=== PATIENT | female | born 1980 | race Caucasian/White ===

== ENCOUNTER 2024-06-20 09:37 | Day surgery (SDC) | payer BC ==
[~2024-06-20] VITALS: Ht 165.1 cm; Wt 108.0 kg
[~2024-06-20 09:37] MED LIST: LR 1,000 ML IV SCH; Ondansetron 4 MG/2 ML VIAL IV PRN
[2024-06-20 09:55] VITALS: BP 160/100; PULSE 81; TEMP 97.7
[2024-06-20] MEDS ORDERED: HUMIRA(CF)40 MG/0.4 SQ (10:20)
[2024-06-20] MEDS ORDERED: CALCIUM 600MG+D1 TAB PO (10:21)
[2024-06-20] MEDS ORDERED: MASON NATURAL2000 IU PO (10:21)
[2024-06-20] MEDS ORDERED: FOLIC ACID 11 MG/TA1 PO (10:22)
[2024-06-20] MEDS ORDERED: CLINDAGEL 40 ML40 ML TOP (10:22)
[2024-06-20] MEDS ORDERED: METHOTREXA2.5 MG/TAB PO (10:23)
[2024-06-20] MEDS ORDERED: SYNTHROID0.1 MG/TAB PO (10:23)
[2024-06-20] MEDS ORDERED: EFFEXOR-XR150 MG PO (10:24)
--- NOTE | 2024-06-20 10:34 | NUR ---
The patient ambulated back to [facility] independently using a steady gait and appeared to tolerate the activity well. Vital signs obtained. Consent signed. 20G IV started in right hand with one stick, LR infusing without difficulty. Assessment completed. Home medications reconcilled. Warm blanket provided. The patient denies any further needs at this time.
[2024-06-20] MEDS ORDERED: Lidocaine PF 2% (20 MG/ML) 5 ML VIAL ONE (10:44)
[2024-06-20 11:25] VITALS: BP 144/91; PULSE 76; TEMP 97.3
[2024-06-20 11:40] VITALS: BP 141/81; PULSE 74
--- NOTE | 2024-06-20 11:55 | NUR ---
1125 RETURNS TO ROOM 6 PER CART. AWAKE, ALERT. RESP UNLABORED. AMBULATES TO RECLINER WITH STANDBY ASSIST. DENIES NAUSEA, ABD/CHEST PAIN OR DYSPHAGIA. VITAL SIGNS OBTAINED. 1135 DR. MCKEON HERE TO VISIT WITH PATIENT 1145 TOLERATES PO WATER AND JUICE WITHOUT NAUSEA. SWALLOWS WITHOUT DIFFICULTY. DISCHARGE INSTRUCTIONS REVIEWED. PATIENT VERBALIZES UNDERSTANDING, COPY PROVIDED IN DISCHARGE FOLDER 1151 DRESSES SELF
== END 2024-06-20 11:55 | disposition home or self-care (01) ==
LOC: SDCO 09:37
DX: K29.70 Gastritis, unspecified, without bleeding (principal); K21.00 Gastro-esophageal reflux disease with esophagitis, without bleeding; B96.81 Helicobacter pylori [H. pylori] as the cause of diseases classified elsewhere; K90.49 Malabsorption due to intolerance, not elsewhere classified; K31.89 Other diseases of stomach and duodenum; E66.9 Obesity, unspecified; Z98.84 Bariatric surgery status
CPT/HCPCS: J1920; J2704; J7120

== ENCOUNTER 2024-07-04 15:31 | Emergency (ER) | payer BC ==
[~2024-07-04] VITALS: Ht 165.1 cm; Wt 109.1 kg
[~2024-07-04 15:31] MED LIST changes: +CALCIUM 600MG+D1 TAB PO; +CLINDAGEL 40 ML40 ML TOP; +EFFEXOR-XR150 MG PO; +FOLIC ACID 11 MG/TA1 PO; +HUMIRA(CF)40 MG/0.4 SQ; -LR 1,000 ML IV SCH; +MASON NATURAL2000 IU PO; +METHOTREXA2.5 MG/TAB PO; -Ondansetron 4 MG/2 ML VIAL IV PRN; +SYNTHROID0.1 MG/TAB PO
[2024-07-04 15:41] VITALS: TEMP 97.8
[2024-07-04] MEDS ORDERED: Ibuprofen 600 MG TAB PO ONE (17:30)
[2024-07-04 18:29] VITALS: PULSE 72
== END 2024-07-04 18:29 | disposition home or self-care (01) ==
LOC: COL.ER 15:31
DX: S93.401A Sprain of unspecified ligament of right ankle, initial encounter (principal); W10.9XXA Fall (on) (from) unspecified stairs and steps, initial encounter